=== PATIENT | male | born 1975 | race Caucasian/White ===

== ENCOUNTER 2016-12-20 17:13 | Emergency (ER) | payer MEDICAID ==
[~2016-12-20] VITALS: Ht 180.3 cm; Wt 93.5 kg
[2016-12-20 17:15] VITALS: BP 156/68
== END 2016-12-20 17:54 | disposition home or self-care (01) ==
LOC: ED 17:45
DX: B35.3 Tinea pedis (principal)
CPT/HCPCS: 99282

== ENCOUNTER 2017-04-16 09:07 | Emergency (ER) | payer MEDICAID ==
[~2017-04-16] VITALS: Ht 180.3 cm; Wt 93.8 kg
[2017-04-16 09:07] VITALS: BP 133/84
== END 2017-04-16 11:10 | disposition home or self-care (01) ==
LOC: ED 09:29
DX: M17.0 Bilateral primary osteoarthritis of knee (principal)
CPT/HCPCS: 93970; 99284

== ENCOUNTER 2017-07-04 08:23 | Emergency (ER) | payer MEDICAID ==
[~2017-07-04] VITALS: Ht 180.3 cm; Wt 94.2 kg
[2017-07-04 08:27] VITALS: BP 169/94
== END 2017-07-04 10:01 | disposition home or self-care (01) ==
LOC: ED 09:29
DX: M13.862 Other specified arthritis, left knee (principal); M13.861 Other specified arthritis, right knee; G89.29 Other chronic pain; M25.561 Pain in right knee; M25.562 Pain in left knee
CPT/HCPCS: 99283

== ENCOUNTER 2017-08-01 14:52 | Emergency (ER) | payer MEDICAID ==
[~2017-08-01] VITALS: Ht 180.3 cm; Wt 93.0 kg
[2017-08-01 14:59] VITALS: BP 142/80
[2017-08-01] MEDS ORDERED: IBUPROFEN 200 MG TABLET ONE (15:42)
[2017-08-01] MEDS ORDERED: HYDROcodone/APAP 5/325 TABLET ONE (15:42)
[2017-08-01] MEDS ORDERED: IBUPROFEN 200 MG TABLET PO ONE (16:00)
[2017-08-01] MEDS ORDERED: HYDROcodone/APAP 5/325 TABLET PO ONE (16:00)
== END 2017-08-01 15:49 | disposition home or self-care (01) ==
LOC: ED 15:00
DX: K08.89 Other specified disorders of teeth and supporting structures (principal); M19.90 Unspecified osteoarthritis, unspecified site
CPT/HCPCS: 41800; 99283